=== PATIENT | female | born 1995 | race African-American/Black ===

== ENCOUNTER 2024-12-11 11:43 | Emergency (ER) | payer OTHER, SELFPAY ==
[2024-12-11 11:57] VITALS: BP 104/55; PULSE 87; RESP 20; TEMP 36.4; O2SAT 100
--- NOTE | 2024-12-11 12:12 | ED.SKABFB ---
HPI - Skin/Abscess/Foreign Bdy General Chief complaint: Skin/Abscess/Foreign Body Stated complaint: irritation on face Time Seen by Provider: 12/11/24 12:14 Source: patient and RN notes reviewed Mode of arrival: ambulatory Limitations: no limitations History of Present Illness HPI narrative: 29-year-old female presents concern for a area on the side of her nose that intermittently has become red, swollen had purulent drainage. She reports that is currently not exacerbated. She reports that is not painful but itchy when it flares. Patient's eye glasses sit right on top of the irritated area. complaint: rash Related Data Allergies Allergy/AdvReac Type Severity Reaction Status Date / Time No Known Allergies Allergy Verified 12/11/24 12:21 Review of Systems Review of Systems: CONSTITUTIONAL: Denies malaise, chills, sweats, or fever. EYES: Denies redness, or discharge. ENT: Denies rhinorrhea, congestion, swollen lips, swollen tongue CARDIOVASCULAR: Denies chest pain, palpitations, or edema. RESPIRATORY: Denies cough or dyspnea. GASTROINTESTINAL: Denies abdominal pain, nausea, vomiting SKIN: Reports intermittent itchy rash with purulence drainage on the right side of the nose MUSCULOSKELETAL: Denies joint pain or myalgia. NEUROLOGIC: Denies headache. All systems reviewed & are unremarkable except as noted in HPI and below PMFSH Comments At time of signature, agree with nursing past medical, surgical, social and family history. There is no relevant family history pertinent to the presenting complaint Exam Narrative: GENERAL: Well-appearing, well-nourished, and in no acute distress. HEAD: Normocephalic, atraumatic. EYES: PERRLA, conjunctivae clear, and EOMI. ENT: Mucous membranes moist. Oropharynx without edema, erythema or lesions. NECK: Supple. No lymphadenopathy CHEST: Clear to auscultation. No respiratory distress. HEART: Regular rate and rhythm. SKIN: Warm, dry. Healing patch of skin noted to the right side of the nose without erythema, induration, warmth or drainage NEURO: Alert and oriented x3. PSYCH: Normal mood and affect Course Course Emergency Course: Patient is aware of diagnosis, understands and agrees to treatment plan. Anticipatory guidance given. Patient agrees to follow-up as directed and is aware of reasons to seek care at the emergency department. Portions of this record may have been created with voice recognition software Level of Care: Express Care Visit Vital Signs Vital signs: Vital Signs Temperature 97.5 F L 12/11/24 11:57 Pulse Rate 87 12/11/24 11:57 Respiratory Rate 20 12/11/24 11:57 Blood Pressure 104/55 L 12/11/24 11:57 Pulse Oximetry 100 12/11/24 11:57 Oxygen Delivery Room Air 12/11/24 11:57 Temperature 97.5 F L 12/11/24 11:57 Pulse Rate 87 12/11/24 11:57 Respiratory Rate 20 12/11/24 11:57 Blood Pressure 104/55 L 12/11/24 11:57 Pulse Oximetry 100 12/11/24 11:57 Oxygen Delivery Room Air 12/11/24 11:57 Reviewed. MDM - Skin/Abscess/Foreign Bdy MDM Narrative Medical decision making narrative: Does not appear at this time to be erythema multiforme, bullous, SJS, TEN; no evidence at this time to suggest RMSF, endocarditis or Lyme disease; patient looks well, nontoxic and is tolerating oral intake; no neurologic signs or symptoms; no headache, photophobia or neck pain; afebrile; appropriate for initial outpatient treatment; discussed the importance of follow-up, patient agrees; question, viral exanthema, contact dermatitis, allergic dermatitis, eczema, urticaria, impetigo, cellulitis. No soft palate or uvula edema, no tongue, lip edema or other mucosal involvement, no respiratory compromise, no stridor, no wheezing, no wheezing, no history of syncope, no hypotension, no nausea, vomiting, or diarrhea. Instructed patient to go to nearest ER immediately for any worsening symptoms including but not limited to: fever, spreading rash, pain, sore throat, headache, dizziness, chest pain, trouble breathing, or any symptoms concerning to the patient. Critical Care Time Critical Care Time Critical Care Time: No Discharge Plan Discharge Clinical Impression: Bacterial skin infection Patient Disposition: Home Condition: Stable Instructions: Impetigo (ED) Additional Instructions: Clean with gentle soap and water once daily. Apply ointment as directed for 1 week. Clean your glasses with alcohol daily. Avoid picking at the skin, scratching the skin. If you are itching you can use a cold washcloth to relieve itching. Follow-up with your primary care doctor for further evaluation as needed. Patient Language: Korean Prescriptions: New mupirocin 2 % ointment 1 applic topical BID 7 Days Qty: 22 0RF Follow-up/Referrals: Ismael,Elizabeth Rodríguez MD [Primary Care Provider, [facility]] Time of Disposition: 12:23
== END 2024-12-11 12:26 | disposition home or self-care (01) ==
PROVIDERS: Emergency Provider Nurse Practitioner; PCP Family Medicine
DX: L08.9 Local infection of the skin and subcutaneous tissue, unspecified (principal); B96.89 Other specified bacterial agents as the cause of diseases classified elsewhere
CPT/HCPCS: 99203; G0463